=== PATIENT | male | born 1970 ===

== ENCOUNTER 2017-11-05 16:03 | Emergency (ER) | payer MEDICAID ==
[2017-11-05 16:29] VITALS: BP 162/96; PULSE 70; RESP 17; TEMP 98.7; O2SAT 98
--- NOTE | 2017-11-05 17:05 | C.PDOC ---
History Of Present Illness 47 y/o male presents to the ER complaining of pain in the left sacroiliac area which has been present for the past 2 weeks. Patient states that the pain is worse with extension and hot showers. Patient reports that he takes occasional Tylenol. 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 Patient does not have any other complaints. Time Seen by Provider: 11/05/17 17:02 Chief Complaint (Nursing): Back Pain History Per: Patient History/Exam Limitations: no limitations Onset/Duration Of Symptoms: Days Current Symptoms Are (Timing): Still Present Severity: Moderate Past Medical History Reviewed: Historical Data, Nursing Documentation, Vital Signs Vital Signs: Last Vital Signs Temp 98.7 F 11/05/17 16:26 Pulse 70 11/05/17 16:26 Resp 17 11/05/17 16:26 BP 162/96 H 11/05/17 16:26 Pulse Ox 98 11/05/17 17:57 - Medical History PMH: HTN Other Surgeries: hx of ortho surgery Family History: States: No Known Family Hx - Social History Hx Alcohol Use: Yes Hx Substance Use: No - Immunization History Hx Tetanus Toxoid Vaccination: No Hx Influenza Vaccination: No Hx Pneumococcal Vaccination: No Review Of Systems Except As Marked, All Systems Reviewed And Found Negative. Musculoskeletal: Positive for: Back Pain Neurological: Negative for: Weakness, Numbness Physical Exam - Physical Exam Appears: Non-toxic, No Acute Distress, Other (morbidly obese) Skin: Normal Color, Warm, No Rash (sacroiliac area) Head: Atraumatic, Normacephalic Eye(s): bilateral: Normal Inspection Nose: Normal Oral Mucosa: Moist Neck: Supple Chest: Symmetrical Cardiovascular: Rhythm Regular Respiratory: Normal Breath Sounds, No Accessory Muscle Use, No Rales, No Rhonchi , No Wheezing Back: Normal Inspection, Other (tenderness to left sacroiliac area, no weakness , no parasthesia) Extremity: Normal ROM Neurological/Psych: Oriented x3, Normal Speech, Normal Motor, Normal Sensation ED Course And Treatment O2 Sat by Pulse Oximetry: 98 (RA) Pulse Ox Interpretation: Normal Progress Note: Patient given Motrin, ice pack to L SI area Reevaluation Time: 18:09 Reassessment Condition: Improved Medical Decision Making Medical Decision Making: sacroiliac tenderness, spinal erector tendonous inflammation, prob worse with hot showers and minimal NSAIDS of Tylenol Improved with ice/Motrin in ED Educated on same. No radiology indicated. Disposition Doctor Will See Patient In The: Office Counseled Patient/Family Regarding: Studies Performed, Diagnosis - Disposition Disposition: HOME/ ROUTINE Disposition Time: 18:10 Condition: GOOD Forms: [facility] (Macedonian) - Clinical Impression Clinical Impression: Low back strain - Scribe Statement The provider has reviewed the documentation as recorded by the Shikha Perez Provider Attestation: All medical record entries made by the Shikha were at my direction and personally dictated by me. I have reviewed the chart and agree that the record accurately reflects my personal performance of the history, physical exam, medical decision making, and the department course for this patient. I have also personally directed, reviewed, and agree with the discharge instructions and disposition.
== END 2017-11-05 18:00 | disposition home or self-care (01) ==
LOC: C.ER 16:03
DX: S39.012A Strain of muscle, fascia and tendon of lower back, initial encounter (principal); X58.XXXA Exposure to other specified factors, initial encounter